=== PATIENT | female | born 1945 | race Caucasian/White ===

== ENCOUNTER 2022-10-30 19:51 | Emergency (ER) | payer MEDICARE ==
[2022-10-30 20:33] LABS: #Monocytes 0.6 10x3/uL (0.0-1.1); #Neutrophils 5.7 10x3/uL (1.5-8.4); %Basophils 0.6 % (0.0-2.0); %Lymphocytes 11.2 % (18.0-47.0); %Monocytes 8.3 % (0.0-10.0); %Neutrophils 79.6 % (40.0-75.0); Hemoglobin 11.1 g/dL (12.0-15.5); Mean Corpuscular HGB CONC 32.4 g/dL (32.0-36.0); Mean Corpuscular Hemoglobin 28.2 pg (27.0-33.0); Mean Corpuscular Volume 87.1 fl (81.6-98.3); Mean Platelet Volume 9.9 fl (7.4-10.4); Platelet Count 198 10x3/uL (150-450); RBC Distribution Width 13.9 % (11.5-14.5); Red Blood Cell (RBC) Count 3.94 10x6/uL (3.90-5.03); White Blood Cell (WBC) Count 7.2 10x3/uL (3.5-10.5)
[2022-10-30 20:52] LABS: ALT (SGPT) 14 U/L (8-55); AST (SGOT) 18 U/L (5-34); Albumin 4.2 g/dL (3.4-4.8); Alkaline Phosphatase 95 U/L (40-110); Anion Gap 15 mmol/L (10-20); BUN (Urea Nitrogen) 21 mg/dL (9.8-20.1); Bilirubin, Total 0.5 mg/dL (0.2-1.2); Calc. Creatinine Clearance 0 mL/min (70-130); Calcium 9.3 mg/dL (7.8-10.44); Carbon Dioxide 25 mmol/L (23-31); Chloride 102 mmol/L (98-107); Estimated GFR 37; Globulin 2.3 g/dL (2.4-3.5); Glucose 200 mg/dL (83-110); Protein, Total 6.5 g/dL (5.8-8.1); Sodium 138 mmol/L (136-145)
[2022-10-30 21:07] LABS: Bilirubin Neg (Negative); Blood, Urine 10 (Negative); Clarity Slightly Cloudy (Clear); Glucose, Urine (Dipstick) Normal (Negative); Ketone, Urine 5 mg/dL (Negative); Leukocyte 100 (Negative); Nitrite Negative (Negative); Protein, Urine (Dipstick) 500 mg/dl (Neg-Trace); Urobilinogen Normal mg/dL (Less than 2)
[2022-10-30 21:20] LABS: Bacteria/HPF 3+ HPF (None Seen); RBC/HPF 0-3 HPF (0-3); Transitional Epithelial 0-3 HPF (None Seen); WBC/HPF Greater Than 50 HPF (0-3)
[2022-10-30] MEDS ORDERED: cefTRIAXone\\ROCEPHIN 2 GM VIAL ONE (21:32)
== END 2022-10-30 22:50 | disposition home or self-care (01) ==
LOC: CSHERS 19:51
DX: R41.82 Altered mental status, unspecified (principal); N30.00 Acute cystitis without hematuria; I10 Essential (primary) hypertension; Z79.899 Other long term (current) drug therapy
CPT/HCPCS: 70450; 80053; 81003; 81015; 83880; 85025; 93005; 96365; J0696

== ENCOUNTER 2023-10-23 00:23 | Inpatient (IN) | payer MEDICARE ==
[2023-10-23 01:04] LABS: Bilirubin Neg (Negative); Blood, Urine 25 (Negative); Glucose, Urine (Dipstick) Normal (Negative); Ketone, Urine Negative (Negative); Leukocyte 25 (Negative); Nitrite Negative (Negative); Protein, Urine (Dipstick) 500 mg/dl (Neg-Trace); Specific Gravity, Urine 1.015 (1.005-1.030); Urobilinogen Normal mg/dL (Less than 2)
[2023-10-23 01:06] LABS: #Basophils 0.1 10x3/uL (0.0-0.2); #Eosinphils 0.3 10x3/uL (0.0-0.5); #Monocytes 0.5 10x3/uL (0.0-1.1); #Neutrophils 5.8 10x3/uL (1.5-8.4); %Basophils 0.8 % (0.0-2.0); %Eosinophils 3.4 % (0.0-6.0); %Lymphocytes 14.3 % (18.0-47.0); %Monocytes 6.6 % (0.0-10.0); %Neutrophils 74.5 % (40.0-75.0); Hematocrit 31.5 % (34.9-44.5); Hemoglobin 9.9 g/dL (12.0-15.5); Mean Corpuscular HGB CONC 31.4 g/dL (32.0-36.0); Mean Corpuscular Hemoglobin 27.7 pg (27.0-33.0); Mean Platelet Volume 9.8 fl (7.4-10.4); Platelet Count 251 10x3/uL (150-450); Red Blood Cell (RBC) Count 3.58 10x6/uL (3.90-5.03); White Blood Cell (WBC) Count 7.8 10x3/uL (3.5-10.5)
[2023-10-23 01:10] LABS: Clarity Slightly Cloudy (Clear)
[2023-10-23 01:17] LABS: Bacteria/HPF 4+ HPF (None Seen); CAUTI Indications for Culture Alt mental st,lethar; Squamous Epithelial 0-3 HPF (0-3); WBC/HPF 21-50 HPF (0-3)
[2023-10-23 01:19] LABS: Urine Culture Reflex Yes Yes
[2023-10-23 01:20] LABS: ALT (SGPT) 14 U/L (8-55); AST (SGOT) 20 U/L (5-34); Alkaline Phosphatase 119 U/L (40-110); Anion Gap 14 mmol/L (10-20); BUN (Urea Nitrogen) 27 mg/dL (9.8-20.1); Bilirubin, Total 0.4 mg/dL (0.2-1.2); Calc. Creatinine Clearance 0 mL/min (70-130); Calcium 9.1 mg/dL (7.8-10.44); Carbon Dioxide 21 mmol/L (23-31); Chloride 108 mmol/L (98-107); Estimated GFR 40; Globulin 2.5 g/dL (2.4-3.5); Glucose 161 mg/dL (83-110); Potassium 4.8 mmol/L (3.5-5.1); Protein, Total 6.5 g/dL (5.8-8.1); Sodium 138 mmol/L (136-145)
[2023-10-23 01:26] LABS: Troponin I 0.015 ng/mL (< 0.028)
[2023-10-23] MEDS ORDERED: cefTRIAXone (ROCEPHIN) 2 GM VIAL ONE (01:26)
[2023-10-23] MEDS ORDERED: Ondansetron PF 4 MG/2 ML Vial IVP PRN (02:01)
[2023-10-23] MEDS ORDERED: Guaifenesin DM 100-10/5 ML UDCUP PO PRN (02:01)
[2023-10-23] MEDS ORDERED: Senokot S 8.6-50 MG TAB PO PRN (02:01)
[2023-10-23] MEDS ORDERED: Acetaminophen 325 MG TAB PO PRN (02:01)
[2023-10-23] MEDS ORDERED: Calcium Carbonate 500 MG ChewTAB PO PRN (02:01)
[2023-10-23] MEDS ORDERED: Amlodipine 5 MG TAB ONE (02:40)
[2023-10-23] MEDS: Glimepiride 2 MG TAB PO SCH (07:48)
[2023-10-23] MEDS: Ferrous Sulfate 325 MG TAB PO SCH (07:48)
[2023-10-23] MEDS ORDERED: Aspirin Chewable 81 MG TAB ONE (07:50)
[2023-10-23] MEDS ORDERED: hydrALAZINE 25 MG TAB ONE (07:50)
[2023-10-23] MEDS ORDERED: metFORMIN 500 MG TAB ONE (07:51)
[2023-10-23] MEDS: hydrALAZINE 25 MG TAB PO SCH (07:55)
[2023-10-23] MEDS: Aspirin 81 mg Enteric Coated Tablet PO SCH (07:55)
[2023-10-23] MEDS: metFORMIN 500 MG TAB PO SCH (07:55)
[2023-10-23 11:07] LABS: Anion Gap 12 mmol/L (10-20); BUN (Urea Nitrogen) 24 mg/dL (9.8-20.1); Calc. Creatinine Clearance 0 mL/min (70-130); Carbon Dioxide 22 mmol/L (23-31); Chloride 110 mmol/L (98-107); Estimated GFR 46; Glucose 132 mg/dL (83-110); Potassium 4.3 mmol/L (3.5-5.1); Sodium 140 mmol/L (136-145)
[2023-10-23] MEDS ORDERED: Dextrose 5% in Water 1,000 ML IV PRN (16:54)
[2023-10-23] MEDS ORDERED: Glucagon 1 MG/ML KIT IM PRN (16:54)
[2023-10-23] MEDS ORDERED: Dextrose 50% Abboject 50 ML SYRINGE SLOW IVP PRN (16:54)
[2023-10-23] MEDS: Amlodipine 5 MG TAB PO SCH (20:00)
[2023-10-23] MEDS: Amlodipine 10 MG TAB PO SCH (20:03)
[2023-10-23] MEDS: Atorvastatin Calcium 10 MG TAB PO SCH (20:04)
[2023-10-23] MEDS: Enoxaparin 40 MG (0.4 mL) SYRINGE SC SCH (20:04)
[2023-10-23] MEDS: FLU VACC QS2023(65UP)/MF59C/PF 60 MCG/0.5 ML SYRINGE IM ONE (20:09)
[2023-10-24] MEDS: cefTRIAXone\\ROCEPHIN 1 GM in Sodium Chloride 0.9% 100 ML IVPB SCH (00:41)
[2023-10-24 03:34] LABS: #Eosinphils 0.2 10x3/uL (0.0-0.5); #Monocytes 0.4 10x3/uL (0.0-1.1); #Neutrophils 3.4 10x3/uL (1.5-8.4); %Basophils 0.6 % (0.0-2.0); %Eosinophils 3.9 % (0.0-6.0); %Lymphocytes 24.1 % (18.0-47.0); %Neutrophils 63.2 % (40.0-75.0); Hematocrit 27.8 % (34.9-44.5); Hemoglobin 8.8 g/dL (12.0-15.5); Mean Corpuscular HGB CONC 31.7 g/dL (32.0-36.0); Mean Corpuscular Hemoglobin 28.1 pg (27.0-33.0); Mean Corpuscular Volume 88.8 fl (81.6-98.3); Mean Platelet Volume 9.5 fl (7.4-10.4); Platelet Count 183 10x3/uL (150-450); RBC Distribution Width 13.8 % (11.5-14.5); Red Blood Cell (RBC) Count 3.13 10x6/uL (3.90-5.03); White Blood Cell (WBC) Count 5.4 10x3/uL (3.5-10.5)
[2023-10-24 04:19] LABS: Anion Gap 11 mmol/L (10-20); BUN (Urea Nitrogen) 20 mg/dL (9.8-20.1); Calc. Creatinine Clearance 51 mL/min (70-130); Calcium 8.7 mg/dL (7.8-10.44); Carbon Dioxide 19 mmol/L (23-31); Chloride 112 mmol/L (98-107); Estimated GFR 48; Glucose 73 mg/dL (83-110); Potassium 4.1 mmol/L (3.5-5.1); Sodium 138 mmol/L (136-145)
[2023-10-24] MEDS: Nitroglycerin 2% Ointment 1 INCH/1 GM Packet TOP SCH (05:00)
[2023-10-24] MEDS: Furosemide 20 MG TAB PO SCH (08:16)
[2023-10-24] MEDS: hydrALAZINE 25 MG TAB PO PRN (12:21)
[2023-10-24] MEDS: Carvedilol 12.5 MG TAB PO SCH ×2 (14:53→17:04)
[2023-10-24] MEDS: Amlodipine 10 MG TAB PO SCH (14:54)
[2023-10-25] MEDS: hydrALAZINE 25 MG TAB PO SCH (02:38)
[2023-10-25 05:03] LABS: #Eosinphils 0.2 10x3/uL (0.0-0.5); #Monocytes 0.5 10x3/uL (0.0-1.1); #Neutrophils 3.9 10x3/uL (1.5-8.4); %Basophils 0.3 % (0.0-2.0); %Monocytes 8.2 % (0.0-10.0); %Neutrophils 67.2 % (40.0-75.0); Hematocrit 27.6 % (34.9-44.5); Mean Corpuscular HGB CONC 32.6 g/dL (32.0-36.0); Mean Corpuscular Hemoglobin 28.1 pg (27.0-33.0); Mean Corpuscular Volume 86.3 fl (81.6-98.3); Mean Platelet Volume 10.4 fl (7.4-10.4); Platelet Count 180 10x3/uL (150-450); RBC Distribution Width 13.4 % (11.5-14.5); White Blood Cell (WBC) Count 5.8 10x3/uL (3.5-10.5)
[2023-10-25 05:14] LABS: Anion Gap 14 mmol/L (10-20); BUN (Urea Nitrogen) 18 mg/dL (9.8-20.1); Calc. Creatinine Clearance 47 mL/min (70-130); Calcium 8.8 mg/dL (7.8-10.44); Carbon Dioxide 21 mmol/L (23-31); Chloride 110 mmol/L (98-107); Estimated GFR 43; Glucose 85 mg/dL (83-110); Sodium 141 mmol/L (136-145)
[2023-10-25] MEDS: Amlodipine 10 MG TAB PO SCH (08:41)
[2023-10-25] MEDS: glipiZIDE XL 2.5 mg ER.TAB PO SCH (08:43)
[2023-10-26 04:47] LABS: #Eosinphils 0.2 10x3/uL (0.0-0.5); #Monocytes 0.5 10x3/uL (0.0-1.1); #Neutrophils 3.6 10x3/uL (1.5-8.4); %Basophils 0.5 % (0.0-2.0); %Eosinophils 3.9 % (0.0-6.0); %Lymphocytes 23.5 % (18.0-47.0); %Monocytes 8.1 % (0.0-10.0); %Neutrophils 63.5 % (40.0-75.0); Hemoglobin 8.7 g/dL (12.0-15.5); Mean Corpuscular HGB CONC 32.2 g/dL (32.0-36.0); Mean Corpuscular Volume 86.8 fl (81.6-98.3); Platelet Count 167 10x3/uL (150-450); RBC Distribution Width 13.6 % (11.5-14.5); Red Blood Cell (RBC) Count 3.11 10x6/uL (3.90-5.03); White Blood Cell (WBC) Count 5.7 10x3/uL (3.5-10.5)
[2023-10-26 05:23] LABS: Anion Gap 12 mmol/L (10-20); BUN (Urea Nitrogen) 19 mg/dL (9.8-20.1); Calc. Creatinine Clearance 48 mL/min (70-130); Calcium 8.4 mg/dL (7.8-10.44); Carbon Dioxide 23 mmol/L (23-31); Chloride 107 mmol/L (98-107); Estimated GFR 45; Glucose 75 mg/dL (83-110); Potassium 3.8 mmol/L (3.5-5.1); Sodium 138 mmol/L (136-145)
[2023-10-26 06:06] LABS: Magnesium 1.9 mg/dL (1.6-2.6)
[2023-10-26] MEDS: Potassium Chloride 20 MEQ TAB PO SCH (06:40)
[2023-10-26] MEDS: Carvedilol 25 MG TAB PO SCH (08:31)
[2023-10-26] MEDS: Hydrochlorothiazide 25 MG TAB PO SCH (08:31)
[2023-10-26] MEDS: Losartan 50 MG TAB PO SCH (10:55)
[2023-10-26 17:04] VITALS: BP 163/95; TEMP 98.2
[2023-10-27] MEDS ORDERED: Losartan 50 MG TAB PO SCH (09:00)
== END 2023-10-26 20:20 | DRG 689 ==
LOC: CSHERS 00:23 → CSHERHOLD 01:58 → CSHTELE 17:32 → OBSVTOIN 10-25 11:22
PROVIDERS: ADMIT Student in an Organized Health Care Education/Training Program; ATTEND Internal Medicine
DX: N39.0 Urinary tract infection, site not specified (principal); G93.41 Metabolic encephalopathy; E78.5 Hyperlipidemia, unspecified; M19.90 Unspecified osteoarthritis, unspecified site; E86.0 Dehydration; I16.0 Hypertensive urgency; N18.30 Chronic kidney disease, stage 3 unspecified; E11.22 Type 2 diabetes mellitus with diabetic chronic kidney disease; D63.1 Anemia in chronic kidney disease; B96.20 Unspecified Escherichia coli [E. coli] as the cause of diseases classified elsewhere; I12.9 Hypertensive chronic kidney disease with stage 1 through stage 4 chronic kidney disease, or unspecified chronic kidney disease; Z85.038 Personal history of other malignant neoplasm of large intestine; Z90.49 Acquired absence of other specified parts of digestive tract; Z98.890 Other specified postprocedural states; Z79.82 Long term (current) use of aspirin; Z79.84 Long term (current) use of oral hypoglycemic drugs; Z79.899 Other long term (current) drug therapy
CPT/HCPCS: 36415; 36416; 70450; 70551; 80048; 80053; 81001; 83735; 83880; 84443; 84484; 85025; 87077; 87086; 87186; 93005; 96361; 96365; 96372; 96376; G0378; J0696; J1650; J3490